=== PATIENT | male | born 1975 | race Caucasian/White ===

== ENCOUNTER 2023-05-17 19:30 | Emergency (ER) | payer MEDICARE ==
[~2023-05-17] VITALS: Ht 172.7 cm; Wt 61.2 kg
[~2023-05-17 19:30] MED LIST: ALBU90OI INH; Augmentin 875-1 EACH PO; CLAR500 PO; DIVA125EC PO; DOXY100 PO; GABA300 PO; HYDACE5 PO; HYDGUAL120 PO; NAPR500 PO; PARO20 PO; SILSUL1TC TOP
[2023-05-17 19:43] VITALS: BP 139/90
[2023-05-17] MEDS ORDERED: IBUP800 PO (20:20)
== END 2023-05-17 20:25 | disposition home or self-care (01) ==
LOC: ER 19:30
DX: K04.7 Periapical abscess without sinus (principal); F31.9 Bipolar disorder, unspecified; Z79.899 Other long term (current) drug therapy
CPT/HCPCS: 99282